=== PATIENT | female | born 1975 | race African-American/Black ===

== ENCOUNTER 2025-04-18 17:06 | Emergency (ER) | payer MEDICARE ==
[~2025-04-18] VITALS: Ht 175.3 cm; Wt 108.0 kg
[2025-04-18] MEDS ORDERED: ACET32TAB PO (17:17)
[2025-04-18] MEDS: ALBUTEROL 90 MCG/ACT 8 GM HFA INHALER INH ONE ×2 (17:53→19:47)
[2025-04-18 17:55] LABS: BASO # 0.0 10^3/uL (0.0-0.2); BASO % 0.6 % (0.0-1.0); EOS # 0.2 10^3/uL (0.0-0.5); EOS % 2.9 % (0.0-3.0); LYMPH # 1.4 10^3/uL (1.5-5.0); LYMPH % 20.5 % (24.0-44.0); MONO # 0.4 10^3/uL (0.0-0.8); MONO % 5.9 % (2.0-8.0); NEUTROPHILS # 4.6 10^3/uL (1.5-8.5); NEUTROPHILS % 69.8 % (36.0-66.0); PLATELET COUNT, AUTOMATED 149 10^3/uL (150-450)
[2025-04-18 18:21] LABS: CK-MB VALUE MASS 1.4 NG/ML (<3.6)
[2025-04-18 18:24] LABS: CALCIUM LEVEL 8.8 MG/DL (8.5-10.1); CARBON DIOXIDE LEVEL 27 MMOL/L (20-31); CHLORIDE LEVEL 103 MMOL/L (98-107); CREATININE FOR GFR 0.60 MG/DL (0.55-1.30); GLOMERULAR FILTRATION RATE > 90.0 (>51); POTASSIUM SERUM 3.9 MMOL/L (3.5-5.1); SODIUM LEVEL 142 MMOL/L (136-145)
[2025-04-18 18:28] LABS: CPK CREATINE PHOSPHOKINASE 83 U/L (34-145); MB/CK RELATIVE INDEX 1.68 (< OR =4)
[2025-04-18 19:09] LABS: CK-MB VALUE MASS 1.7 NG/ML (<3.6)
[2025-04-18 19:11] LABS: CPK CREATINE PHOSPHOKINASE 75 U/L (34-145); MB/CK RELATIVE INDEX 2.26 (< OR =4)
[2025-04-18 19:15] VITALS: O2SAT 98
[2025-04-18 19:30] VITALS: BP 152/81
[2025-04-18] MEDS ORDERED: VENTAER INH (19:32)
[2025-04-18] MEDS ORDERED: PRED10TA2 PO (19:32)
[2025-04-18 20:01] VITALS: TEMP 98
== END 2025-04-18 20:01 | disposition home or self-care (01) ==
LOC: M ED 17:06
DX: R05.9 Cough, unspecified (principal); B34.1 Enterovirus infection, unspecified; E11.9 Type 2 diabetes mellitus without complications; F41.9 Anxiety disorder, unspecified; Z88.5 Allergy status to narcotic agent; Z91.09 Other allergy status, other than to drugs and biological substances; Z79.1 Long term (current) use of non-steroidal anti-inflammatories (NSAID); Z79.51 Long term (current) use of inhaled steroids; Z79.52 Long term (current) use of systemic steroids
CPT/HCPCS: 71045; 80048; 82550; 82553; 83880; 84484; 85025; 85379; 87486; 87581; 87633; 87798; 93005; 93041; 94640; 94760; 96374; 99285; J2919